=== PATIENT | female | born 1960 ===

== ENCOUNTER 2021-12-26 10:45 | Outpatient (RCR) | payer BC, SELFPAY ==
--- NOTE | 2021-12-10 11:20 | PTOPEVAL ---
PHYSICAL THERAPY EVALUATION and PLAN OF CARE Thank you for referring Nasrin Corbin to [facility].? Dia will be seen every week to every other week for 4 visits over the next 6 weeks for treatment of Urge urinary incontinence and post cystocele repair strengthening. Please review, sign, date and return this plan of care KISHOR. I agree with and certify that the following plan of care is medically necessary. Referring Physician Date Evaluation Diagnosis cystocele, urge urinary incontinence Onset 08/22/21 Subjective Information reports she had a repair of Query Text:As Reported By Patient/ vaginal wall prolapse on 08/22 Family . Since then she started to experience episodes of severe urge to urinate and then an immediate need to urinate. States that she does not leak but when she has to go to the bathroom she has to go right now and by the time she gets there she just about loses her urine. Also reports back pain that has been around for a few months which has mostly subsided since the surgery and since she has been resting since surgery. She has not been exercising as much (was walking, exercise burundian ball, abdominal plate. goes to the bathroom about 12 times/day. States that 30minutes after drinking anything she has to go to the bathroom. Goes to the bathroom about 4times through the night. Pain Assessment Timing of Pain Assessment Timing of Pain Assessment Assessment Pain Scale Pain Scale Used Numeric (1 - 10) Self Report Pain Assessment Back Reported Pain Level 4 Pain Description Aching,Spasms Pain Frequency Chronic,Continuous Lowest Pain Intensity 1 Greatest Pain Intensity 6 Pain Score Pain Score 4: Self Report Additional Pain Score Comments post treatment: reports her back pain is not there Interventions Used Interventions Used By Clinicians Exercise Cervical and Lumbar ROM Lumbar ROM Lumbar Flexion (0-90) 40 Query Text:Active in Degrees Lumbar Extension (0-40) 3 Query
--- NOTE | 2021-12-26 11:32 | PTOPEVAL ---
PHYSICAL THERAPY DISCHARGE NOTE Thank you for referring Nasrin Corbin to [facility] [place].? Please review, sign, date and return this plan of care KISHOR. I agree with and certify that the following plan of care is medically necessary. Referring Physician Date Discharge Evaluation Information Problem Diagnosis cystocele, urge urinary incontinence Onset 08/22/21 Subjective Information States that 2 weeks ago she Query Text:As Reported By Patient/ felt like she had zero control Family over her bladder and now she feels like she has 95% control . She is working on pelvic floor contractions, but most of all she has been working on habit changes and managing her symptoms or urge incontinence. She is now only going to the bathroom at night 1-2x/night. Pain Assessment Timing of Pain Assessment Timing of Pain Assessment Assessment Self Report Self Report Pain Level 0 Pain Score Pain Score 0: Self Report Lower Extremity Muscle Strength Testing Hip Strength Right Hip Flexion Strength 4+ Good + Hip Extension Strength 3+ Fair + Hip Abduction Strength 4 Good Hip Adduction Strength 4 Good Left Hip Flexion Strength 4- Good - Hip Extension Strength 3+ Fair + Hip Abduction Strength 3+ Fair + Hip Adduction Strength 4- Good - Knee Strength Right Knee Flexion Strength 4+ Good + Knee Extension Strength 4+ Good + Left Knee Flexion Strength 4 Good Knee Extension Strength 4 Good Pelvic Health Evaluation Pelvic Floor Assessment Permission Received for External/ Yes: external through clothes Internal Perineal Exam External Perineal Body Mobility Present Voluntary External Perineal Body Mobility Present Involuntary Sustained Levator Ani Strength 6seconds,3/5 strength - increased cueing to include anus Quick Levator Ani Contraction in 15 7 in 15 seconds Seconds Pelvic Health Therapy Pelvic Health Exercise Isolated Levator Ani Contraction 6seconds [id number] with exhale - Query Text:Position, Hold/Relaxation lift shepard with anus Time, Repetitions Quick Contractions cues to fully relax between Query Text:Position, Repetitions contractions Other Exercises box lifting uisng appropriate Query Text:Record Sets, Repetitions, mechanics and en
== END 2021-12-26 15:46 | disposition home or self-care (01) ==
LOC: ANHPT 10:45
DX: N81.10 Cystocele, unspecified (principal)
CPT/HCPCS: 97112; 97163; 97530